=== PATIENT | male | born 1940 | race Hispanic/Latino ===

== ENCOUNTER 2018-02-01 18:18 | Emergency (ER) | payer OTHER ==
[2018-02-01 18:24] VITALS: BMI 22.2
[2018-02-01 18:46] VITALS: RESP 18
[2018-02-01] MEDS ORDERED: Lidocaine 5% Patch TD STA (18:51)
--- NOTE | 2018-02-01 18:55 | ED PDOC ---
Arrival/HPI - General Chief Complaint: Lower Extremity Problem/Injury Time Seen by Provider: 02/01/18 18:21 Historian: Patient - History of Present Illness Narrative History of Present Illness (Text): 02/01/18 18:52 77 yo M with PMH of arthritis c/o 3 day h/o atraumtic R knee pain with swelling, reports that pain is worse with walking. Denies any fever, chills, numbness, decrease in ROM, other joint pain. PMD Farooq Past Medical History - Infectious Disease Hx of Infectious Diseases: None - Cardiac Hx Pacemaker: No - Neurological Hx Paralysis: No - Hematological/Oncological Hx Blood Transfusions: No Hx Blood Transfusion Reaction: No - Musculoskeletal/Rheumatological Hx Musculoskeletal Disorders: No - Psychiatric Hx Emotional Abuse: No Hx Physical Abuse: No Hx Substance Use: No - Anesthesia Hx Anesthesia Reactions: No Hx Malignant Hyperthermia: No - Suicidal Assessment Feels Threatened In Home Enviroment: No Family/Social History Family/Social History: No Known Family HX Smoking Status: Light Smoker < 10 Cigarettes Daily Hx Alcohol Use: No Hx Substance Use: No Allergies/Home Meds Allergies/Adverse Reactions: Allergies oxycodone Adverse Reaction (Verified 04/25/15 16:42) ANAPHYLAXIS Home Medications: Home Meds Medication Instructions Recorded Confirmed Naproxen Sodium [Aleve] 1 tab PO DAILY PRN 02/01/18 02/01/18 Review of Systems - Review of Systems Constitutional: absent: Fatigue, Fevers Musculoskeletal: Arthralgias, Joint Swelling. absent: Back Pain, Neck Pain Skin: absent: Rash, Pruritis, Skin Lesions Physical Exam Vital Signs Temp Pulse Resp BP Pulse Ox 02/01/18 18:18 97.3 F L 45 L 18 172/95 H 100 Temperature: Afebrile Blood Pressure: Hypertensive Pulse: Regular Respiratory Rate: Normal Appearance: Positive for: Well-Appearing, Non-Toxic, Comfortable Pain Distress: None Mental Status: Positive for: Alert and Oriented X 3 - Systems Exam Upper Extremity: Present: Normal Inspection. No: Edema Lower Extremity: Present: NORMAL PULSES, Normal ROM, Tenderness (+mild tenderness to the R knee with palpable knee effusion. ), Capillary Refill < 2 s. No: CALF TENDERNESS, Erythema, Deformity, Temperature Abnormalties, Neurovascularly Intact Neurological: Present: GCS=15, CN II-XII Intact, Speech Normal, Motor Func Grossly Intact, Normal Sensory Function Skin: Present: Warm, Dry, Normal Color. No: Rashes Psychiatric: Present: Alert, Oriented x 3, Normal Insight, Normal Concentration Medical Decision Making ED Course and Treatment: 02/01/18 18:55 Patient advised of diagnosis of right knee effusion. Advised RICE. Luis wrap applied to the knee. Medicated with tylenol po and lidoderm patch. Advised that he will need to follow up with ortho if symptoms do not improve with conservative management. Patient states that he will follow up with Dr. Adams. Repeat BP 163/67, patient reports no h/o HTN. Advised to follow up elevated bp with pmd without fail. Patient reports no headache, dizziness, CP or SOB at this time. Advised to follow up with primary care physician in 1-2 days without fail. Advised to take medication as prescribed. Return to the emergency room at any time for any new or worsening symptoms. Patient states he fully agrees with and understands discharge instructions. States that he agrees with the plan and disposition. Verbalized and repeated discharge instructions and plan. I have given the patient opportunity to ask any additional questions. - PA / GLOBAL TECHNICAL WRITER / Resident Statement MD/DO has reviewed & agrees with the documentation as recorded. Disposition/Present on Arrival - Present on Arrival Any Indicators Present on Arrival: No History of DVT/PE: No History of Uncontrolled Diabetes: No Urinary Catheter: No History of Decub. Ulcer: No History Surgical Site Infection Following: None - Disposition Have Diagnosis and Disposition been Completed?: Yes Diagnosis: Effusion, right knee Disposition: HOME/ ROUTINE Disposition Time: 19:00 Patient Plan: Discharge Condition: STABLE Discharge Instructions (ExitCare): Osteoarthritis (DC) Additional Instructions: Thank you for letting us take care of you today. You were treated for R knee effusion. The emergency medical care you received today was directed at your acute symptoms. If you were prescribed any medication, please fill it and take as directed. It may take several days for your symptoms to resolve. Return to the Emergency Department if your symptoms worsen, do not improve, or if you have any other problems. Please contact your doctor in 2 days for re-evaluation and follow up / or call one of the physicians/clinics you have been referred to that are listed on the Patient Visit Information form that is included in your discharge packet. Bring any paperwork you were given at discharge with you along with any medications you are taking to your follow up visit. Our treatment cannot replace ongoing medical care by a primary care provider (PCP) outside of the emergency department. Thank you for allowing the [facility] team to be part of your care today. Your blood pressure was elevated today at 163/69, please follow up your blood pressure with your doctor without fail. Prescriptions: Acetaminophen [Tylenol] 650 mg PO Q4H PRN #30 capsule PRN Reason: Pain, Moderate (4-7) Lidocaine 5% [Lidoderm] 1 ea TD Q12H PRN #20 patch PRN Reason: Pain, Moderate (4-7) Referrals: Pascual Trivedi MD [Primary Care Provider] - Follow up with primary Jewel Dwyer MD [Staff Provider] - Follow up with primary Forms: [employer] (Gabonese), WORK NOTE
[2018-02-01 19:23] VITALS: BP 145/63; PULSE 46; TEMP 97.9; O2SAT 99
== END 2018-02-01 19:21 | disposition home or self-care (01) ==
LOC: ED 18:18
DX: M25.461 Effusion, right knee (principal); F17.210 Nicotine dependence, cigarettes, uncomplicated

== ENCOUNTER 2018-02-08 21:19 | Emergency (ER) | payer OTHER ==
[2018-02-08 21:20] VITALS: BMI 22.2
[2018-02-08 21:27] VITALS: RESP 18; TEMP 98
--- NOTE | 2018-02-08 21:54 | ED PDOC ---
Arrival/HPI - General Chief Complaint: Lower Extremity Problem/Injury Time Seen by Provider: 02/08/18 21:21 Historian: Patient - History of Present Illness Narrative History of Present Illness (Text): 02/08/18 21:52 77yr old male presents today requesting xray of the right knee. pt states he was seen in the ER 1 week ago for knee swelling. pt states since then the swelling has resolved and the pain has resolved. pt states he has f/u with the orthopedist for his knee evaluation, but they require an xray of the knee. pt is requesting an xray of the right knee. pt states he has no complaints currently. pt states if he feels any pain in the left knee, aleve takes the pain away. Past Medical History - Provider Review Nursing Documentation Reviewed: Yes - Travel History Have you recently traveled outside [place] w/in the past 3 mons?: No - Infectious Disease Hx of Infectious Diseases: None - Cardiac Hx Pacemaker: No - Neurological Hx Paralysis: No - Hematological/Oncological Hx Blood Transfusions: No Hx Blood Transfusion Reaction: No - Musculoskeletal/Rheumatological Hx Musculoskeletal Disorders: No - Psychiatric Hx Emotional Abuse: No Hx Physical Abuse: No Hx Substance Use: No - Anesthesia Hx Anesthesia: No Hx Anesthesia Reactions: No Hx Malignant Hyperthermia: No - Suicidal Assessment Feels Threatened In Home Enviroment: No Family/Social History - Physician Review Nursing Documentation Reviewed: Yes Family/Social History: Unknown Family HX Smoking Status: Light Smoker < 10 Cigarettes Daily Hx Alcohol Use: No Hx Substance Use: No Allergies/Home Meds Allergies/Adverse Reactions: Allergies oxycodone Adverse Reaction (Verified 04/25/15 16:42) ANAPHYLAXIS Home Medications: Home Meds Medication Instructions Recorded Confirmed Naproxen Sodium [Aleve] 1 tab PO DAILY PRN 02/01/18 02/01/18 Review of Systems - Review of Systems Constitutional: absent: Fatigue, Fevers Respiratory: absent: SOB, Cough Cardiovascular: absent: Chest Pain, Palpitations Gastrointestinal: absent: Abdominal Pain, Nausea, Vomiting Musculoskeletal: absent: Arthralgias, Back Pain, Neck Pain Skin: absent: Rash, Pruritis Neurological: absent: Headache, Dizziness Psychiatric: absent: Anxiety, Depression Physical Exam Vital Signs Reviewed: Yes Vital Signs Temp Pulse Resp BP Pulse Ox 02/08/18 21:21 98.0 F 54 L 18 159/92 H 98 Temperature: Afebrile Blood Pressure: Hypertensive Pulse: Regular Respiratory Rate: Normal Appearance: Positive for: Well-Appearing, Non-Toxic, Comfortable Pain Distress: None Mental Status: Positive for: Alert and Oriented X 3 - Systems Exam Head: Present: Atraumatic Mouth: Present: Moist Mucous Membranes Respiratory/Chest: Present: Clear to Auscultation, Good Air Exchange. No: Respiratory Distress, Accessory Muscle Use Cardiovascular: Present: Normal S1, S2, Bradycardic. No: Murmurs Lower Extremity: Present: Normal Inspection, NORMAL PULSES, Normal ROM, Capillary Refill < 2 s. No: Edema, CALF TENDERNESS, Tenderness, Swelling, Erythema Neurological: Present: GCS=15, Speech Normal Skin: Present: Warm, Dry, Normal Color. No: Rashes Psychiatric: Present: Alert, Oriented x 3 Medical Decision Making ED Course and Treatment: 02/08/18 21:55 Patient nontoxic well-appearing in no distress with stable vital signs. denies any complaints. requesting xray of right knee. X-rays of the right knee; no fracture pt denies any pain. I discussed all results with patient advised to followup with the orthopedist for the next 2 days. pt states he has appointment with the orthopedist scheduled for next week on . Return if symptoms worsen persist or new symptoms develop Impression: knee pain Motrin every 6 hours as needed for pain Followup with the orthopedist within the next 2 days Followup with primary care physician within the next 2 days Return if symptoms worsen persist or if new symptoms develop - RAD Interpretation Radiology Orders: 02/08/18 21:50 KNEE W PATELLA RIGHT 3 VIEW [RAD] Stat Disposition/Present on Arrival - Present on Arrival Any Indicators Present on Arrival: No History of DVT/PE: No History of Uncontrolled Diabetes: No Urinary Catheter: No History of Decub. Ulcer: No History Surgical Site Infection Following: None - Disposition Have Diagnosis and Disposition been Completed?: Yes Diagnosis: Knee pain Disposition: HOME/ ROUTINE Disposition Time: 21:51 Patient Plan: Discharge Condition: GOOD Discharge Instructions (ExitCare): Knee Pain Additional Instructions: Rest, ice, compression, elevation Followup with the orthopedist within the next 2 days Followup with primary care physician within the next 2 days Return if symptoms worsen persist or if new symptoms develop Referrals: Pascual Trivedi MD [Staff Provider] - Follow up with primary Jewel Dwyer MD [Staff Provider] - Follow up with primary
[2018-02-08 22:45] VITALS: BP 135/89; PULSE 55; O2SAT 100
--- NOTE | 2018-02-09 12:20 | RAD ---
PROCEDURE: Right Knee Radiographs. HISTORY: knee pain COMPARISON: No prior. FINDINGS: Rotated lateral view. BONES: Osseous demineralization limits evaluation for acute fracture lines. No acute displaced fracture. JOINTS: No dislocation. Marked joint space narrowing of the medial compartment. JOINT EFFUSION: No significant joint effusion. OTHER FINDINGS: Vascular calcifications. IMPRESSION: Osseous demineralization. Degenerative changes including marked medial compartment joint space narrowing. No acute displaced fracture identified. If symptoms persist or if there is continued clinical concern, x-ray follow-up in 7-10 days should be considered.
== END 2018-02-08 22:15 | disposition home or self-care (01) ==
LOC: ED 21:19
DX: M25.561 Pain in right knee (principal)